=== PATIENT | male | born 1990 | race Caucasian/White ===

== ENCOUNTER 2017-04-05 15:43 | Emergency (ER) | payer BC ==
[~2017-04-05] VITALS: Ht 177.8 cm; Wt 78.0 kg
[2017-04-05 16:51] LABS: HEMATOCRIT 47.9 % (38.0-50.0); MCH 29.9 PG (29.0-34.0); MCHC 34.2 G/DL (30.0-36.0); MCV 87.4 FL (86-99); MEAN PLAT.VOLUME 10.1 uM^3 (9.0-12.4); PLATELET COUNT 282 K/uL (156-360); RBC DIS.WIDTH-CV 11.8 % (11.8-14.6); RBC DIS.WIDTH-SD 38.2 % (39-53); RED BLOOD COUNT 5.48 M/uL (4.00-5.50); WHITE BLOOD COUNT 7.8 K/uL (4.1-10.2)
[2017-04-05 16:59] LABS: CHLORIDE 107 mEq/L (99-109); POTASSIUM 4.2 mEq/L (3.7-5.4); SODIUM 142 mEq/L (136-147)
[2017-04-05 17:01] LABS: GLUCOSE 93 mg/dL (70-99)
[2017-04-05 17:02] LABS: ANION GAP 10 MEQ/L (2-14)
[2017-04-05 17:03] LABS: TOTAL BILIRUBIN 0.5 mg/dL (0.0-1.0)
[2017-04-05 17:04] LABS: ALKALINE PHOSPHATASE 56 IU/L (3-129); SERUM ETHYL ALCOHOL < 10 mg/dL
[2017-04-05 17:05] LABS: GFR ESTIMATE (CALCULATED) > 59 mL/min/
[2017-04-05 17:06] LABS: UREA NITROGEN (BUN) 12 mg/dL (9-23)
[2017-04-05 17:34] LABS: AMPHETAMINE NEGATIVE (500 ng/mL); BARBITURATES NEGATIVE (200 ng/mL); BENZODIAZEPINES NEGATIVE (150 ng/mL); COCAINE NEGATIVE (150 ng/mL); INTERNAL CONTROLS VALID? YES; METHADONE NEGATIVE (200 ng/mL); METHAMPHETAMINE NEGATIVE (500 ng/mL); OPIATES (MORPHINE) NEGATIVE (100 ng/mL); OXYCODONE NEGATIVE (100 ng/mL); PHENCYCLIDINE NEGATIVE (25 ng/mL); PROPOXYPHENE NEGATIVE (300 ng/mL); THC CANNABINOIDS NEGATIVE (50 ng/mL); TRICYCLIC ANTIDEPRESSANTS NEGATIVE (300 ng/mL)
[2017-04-05 18:46] VITALS: BP 139/92
== END 2017-04-05 18:47 | disposition home or self-care (01) ==
LOC: EME 15:43
PROVIDERS: Emergency Medicine
DX: F32.9 Major depressive disorder, single episode, unspecified (principal); F41.9 Anxiety disorder, unspecified; Z91.5 Personal history of self-harm
CPT/HCPCS: 80053; 81003; 85027; 90839; 99281; 99284; G0480